=== PATIENT | male | born 1960 | race Caucasian/White ===

== ENCOUNTER 2016-12-06 12:01 | Emergency (ER) | payer BC, OTHER ==
[~2016-12-06] VITALS: Ht 177.8 cm; Wt 86.7 kg
[~2016-12-06 12:01] MED LIST: CALC1CAP8 PO; Clindamycin PO; HYDR1TAB12 PO; LISI20TA PO; LISI30TA4 PO; OMEG1CAP34 PO; OXYC1TAB9 PO
[2016-12-06] MEDS ORDERED: SODIUM CHLORIDE FLUSH 10ML SYR IVF ONE (13:00)
[2016-12-06 13:03] LABS: HEMATOCRIT 49.1 % (39.2-51.8); HEMOGLOBIN 16.3 g/dL (13.7-18.0); WHITE BLOOD COUNT 9.7 x10^3/uL (3.4-10)
[2016-12-06 13:12] LABS: BLOOD UREA NITROGEN 9 mg/dL (7-18)
[2016-12-06 13:33] VITALS: BP 158/82
[2016-12-06] MEDS ORDERED: KETOROLAC 30 MG/1 ML IVPush ONE (14:00)
[2016-12-06] MEDS ORDERED: KETOROLAC 30 MG/1 ML ONE (14:02)
== END 2016-12-06 14:28 | disposition home or self-care (01) ==
LOC: ED 14:00
DX: G44.201 Tension-type headache, unspecified, intractable (principal); M51.34 Other intervertebral disc degeneration, thoracic region; I10 Essential (primary) hypertension
CPT/HCPCS: 36415; 70450; 71020; 80048; 82040; 85025; 93005; 96374; 99285; J1885